=== PATIENT | female | born 1995 | race Caucasian/White ===

== ENCOUNTER 2021-10-14 09:58 | Outpatient (CLI) | payer OTHER, SELFPAY ==
--- NOTE | 2021-10-14 10:15 | MR_ITS ---
[address] [address] Phone:?[phone] Fax:?[phone] Referring Physician Information: Robert Umana [address] [facility] [address] Phone:?[phone] Fax:?[phone] Patient:?Marisela Gracia D.O.B:?1995 Sex:?Female Phone:?[phone] [facility] MRN:?[id number] Exam Date:?10/14/2021 ? EXAM: MRI of the RIGHT WRIST, without contrast CLINICAL: Female, 25 years old, with work-related ulnar-sided right wrist pain. INDICATION: Evaluate for wrist derangement etiology. PRIOR SURGERY: None reported. PLAIN FILMS: None available. COMPARISONS: No prior MRIs available. TECHNICAL: Using a 1.5T MR scanner and a localizing surface coil: 3.0 mm?coronals: T1, T2,STIR 3.0 mm?sagittals: PDFS 3.0 mm?axials: PD, PDFS SEDATION: None. CONTRAST: None. IMPRESSION: 1. Full-thickness TFCC articular disc tear. 2. 2 mm ulna plus variance, morphology with potential to predispose to ulnar impaction syndrome and TFCC injury. 3. Borderline abnormal flexor tenosynovitis of the carpal tunnel. 4. No fractures or marrow edema. Were 5 mm proximal carpal row ligament tears. FINDINGS: Joints: Radiocarpal: No pathologic effusion or convincing arthrosis. Distal radioulnar: No pathologic effusion or convincing arthrosis. Midcarpal: No pathologic effusion or convincing arthrosis. Carpometacarpal: No pathologic effusion or convincing arthrosis. Ganglion cyst: No dorsal or other soft tissue ganglion cyst. Osseous structures: Carpal bones: No stress/occult fracture, marrow edema or osteonecrosis. Distal radius: No fracture or marrow edema. Distal ulna: No fracture or marrow edema. 2 mm ulna plus variance (coronal T1 series 6, image 9) Proximal metacarpals: No fracture or marrow edema. Alignment: Lunate type: Type I Scapholunate and capitolunate angles: Normal. Ulna variance: 2 mm ulna plus variance. TFCC: Signal alteration and deformity consistent with degeneration and full-thickness tear of TFCC articular disc (coronal T1 & PDFS series 6 & 5, images 11-9). Ligaments: Scapholunate: No sprain/tear or disassociation. Lunotriquetral: No sprain/tear. Tendons: Flexors: Perhaps mild edema within the carpal tunnel, borderline for mild flexor tenosynovitis, with flexor tendons otherwise appearing intact without riley tendinopathy or tear (axial PDFS series 4, images 4-11). Extensors: ECU & 6th extensor compartment: Intact without riley tendinopathy tear or longitudinal splitting. Extensor retinaculum and fibrous subsheath appear intact without demonstrable subsheath injury or nonphysiologic ECU displacement. 1st - 5th extensor compartments: Intact and unremarkable. Neurovascular: Median: Above questioned borderline abnormal flexor tenosynovitis of the carpal tunnel, but otherwise unremarkable carpal tunnel without convincing neuritis or intrinsic/extrinsic masses. Ulnar: Unremarkable Guyon's canal without intrinsic/extrinsic masses. [facility] Electronically signed on 10/15/2021 11:48:00 AM by Juan M Thomas M.D.
== END 2021-10-14 09:59 | disposition home or self-care (01) ==
LOC: MRI 09:59
PROVIDERS: PCP Family Medicine; Visit Provider Physician Assistant Surgical
DX: M25.531 Pain in right wrist (principal); G56.01 Carpal tunnel syndrome, right upper limb
CPT/HCPCS: 73221

== ENCOUNTER 2021-11-22 09:24 | Day surgery (SDC) | payer OTHER, SELFPAY ==
[2021-11-22] VITALS (11 sets, daily range): BP systolic 122–147; BP diastolic 66–100; PULSE 67–86; RESP 12–18; TEMP 36.2–36.6; O2SAT 97–100; BMI 30.3
[2021-11-22 09:39] LABS: Ur HCG Qualitative* Negative (Negative)
[2021-11-22] MEDS: LACTATED RINGERS 1000 ML 1,000 ML 100 ML IV (09:55)
[2021-11-22] MEDS: ONDANSETRON 2 MG/ML inj 4 MG IVP (12:00)
[2021-11-22] MEDS: BUPIVACAINE 0.25% 30 ML INJECTION (13:02)
--- NOTE | 2021-11-22 13:09 | P.GYNPRC_ITS ---
Procedure Note Date Seen: 11/22/21 Procedure Details: PREOPERATIVE DIAGNOSES: 1. Undesired fertility. 2. Endometriosis. POSTOPERATIVE DIAGNOSES: 1. Undesired fertility. 2. Endometriosis. PROCEDURE: 1. Laparoscopic bilateral salpingectomies. 2. Fulguration of endometriosis. 3. IUD removal. SURGEON: [employer] VICE PRESIDENT: Yosvany Reynolds. ANESTHESIA: General endotracheal. COMPLICATIONS: None. ESTIMATED BLOOD LOSS: 10 mL. FINDINGS: Normal-appearing uterus, ovaries bilaterally, and bilateral fallopian tubes. Endometriosis in the posterior cul-de-sac, 1 implant in the midline, 1 implant near the right uterosacral ligament, and a grouping of deeper implants overlying the left ureter. DESCRIPTION OF PROCEDURE: After obtaining informed consent, the patient was taken to the operating room where general anesthesia was obtained without difficulty. She was prepared and draped in the normal sterile fashion in the low dorsal lithotomy position. A Jaquez catheter was inserted into the bladder and left to gravity drainage. A medium Graves open-sided speculum was introduced into the vagina. The cervix was visualized and grasped along its anterior lip with a single-tooth tenaculum. The IUD strings were visualized at the external cervical os, they were grasped with a Carmalt clamp, and the IUD removed without difficulty. A [employer] uterine manipulator was placed without difficulty. The tenaculum and speculum were removed. I then changed gloves and my attention was turned to the abdomen. The inferior aspect of the umbilical fold was injected with 0.25% Marcaine plain. A 5 mm vertical incision was then made within the umbilical fold using a scalpel. The subcutaneous tissues were bluntly dissected with a Kaylie clamp to the fascia. A direct entry technique was used to place a 5 mm laparoscopic port with CO2 gas set to a 5 mmHg. The trocar was removed leaving the sleeve in place. The CO2 gas flow was turned to high flow to achieve pneumoperitoneum. The 5 mm laparoscope was used then to carefully inspect the abdomen and pelvis with findings noted above. Pictures were taken for documentation purposes. The patient was placed in Trendelenburg positioning. Two additional 5 mm port were placed in the right and left lower quadrant under direct visualization after first anesthetizing the skin and fascia with 0.25% Marcaine plain. The uterus was elevated using the uterine manipulator. The bowels were gently pushed from the pelvis cephalad. The left fallopian tube was elevated with the graspers. The left tube was excised from its ovarian, broad ligament, and cornual attachments using the LigaSure bipolar electrocautery device. The right fallopian tube was then also elevated and excised in a similar fashion. Hemostasis was obtained on both sides. The midline and right-sided posterior cul-de-sac endometriosis implants were fulgurated using the [employer] [facility] bipolar electrocautery spatula. I attempted to elevate the grouping of implants that were overlying the left ureter along its course, and determined that it would not be safe at this time to excise them for fear of injuring the ureter immediately beneath the implants. All instruments were then removed under direct visualization. Pneumoperitoneum was allowed to escape. The skin at all 3 port sites was closed in a subcuticular fashion with 4-0 Vicryl. Exofin glue was then placed over the incisions. The uterine manipulator and Jaquez catheter were removed. The patient tolerated the procedure well. Sponge, lap, and needle counts were correct x2. The patient was taken to the recovery room awake and in stable condition.
--- NOTE | 2021-11-22 13:17 | PM.PROC ---
Procedure Note Time Seen by Provider: 13:17 Date Seen: 11/22/21 Date of procedure: 11/22/21 Will [facility] bill your pro fee for this procedure?: Yes Procedure: assistant principal op note: Preoperative diagnosis: 25-year-old with undesired fertility, endometriosis, Mirena IUD Postoperative diagnosis: Same Procedure: Mirena IUD removal, laparoscopic bilateral salpingectomy, fulguration of endometriosis. Operative note: I was asked to assist Dr. Jessica with the patient's surgery. I aided in dissection, visualization, and obtaining hemostasis. Please see Dr. Jessica note for complete details. Surgeon: Crissy Bauer MD
--- NOTE | 2021-11-22 13:21 | W.ANESCHARGE ---
Anesthesia Charges Start Date/Time Anesthesia Start Date: 11/22/21 Anesthesia Start Time: 12:04 Stop Date/Time Anesthesia Stop Date: 11/22/21 Anesthesia Stop Time: 13:25 Summary Emergency: No
[2021-11-22] MEDS: MEPERIDINE 25 MG/ML INJ 12.5 MG IVP (13:29)
--- NOTE | 2021-11-22 13:44 | W.ANESCHARGE ---
Anesthesia Charges Start Date/Time Anesthesia Start Date: 11/22/21 Anesthesia Start Time: 12:04 Stop Date/Time Anesthesia Stop Date: 11/22/21 Anesthesia Stop Time: 13:25 Summary Emergency: No
[2021-11-22] MEDS: HYDROCODONE/ACETAMIN 7.5-325 TABLET 1 TAB PO (14:22)
[2021-11-22] MEDS: METOCLOPRAMIDE HCL 5 MG/ML INJ 10 MG IVP (14:41)
== END 2021-11-22 14:45 | disposition home or self-care (01) ==
PROVIDERS: PCP Family Medicine; Visit Provider Obstetrics & Gynecology
PROC: (CPT 58661; principal; 2021-11-22 10:30)
DX: N80.3 Endometriosis of pelvic peritoneum (principal); Z30.2 Encounter for sterilization; Z30.432 Encounter for removal of intrauterine contraceptive device
CPT/HCPCS: 58661; 58662; 58301; 00851; 81025; A9270; J0330; J1100; J1170; J2175; J2250; J2405; J2704; J2765; J3010; J3490; J7120

== ENCOUNTER 2022-10-20 09:18 | Outpatient (CLI) | payer OTHER, SELFPAY | END 2022-10-20 09:19 | disposition home or self-care (01) | PROVIDERS: PCP Family Medicine; Visit Provider Registered Nurse | DX: Z01.419 Encounter for gynecological examination (general) (routine) without abnormal findings (principal); Z13.6 Encounter for screening for cardiovascular disorders; Z13.1 Encounter for screening for diabetes mellitus | CPT/HCPCS: 80061; 82947 ==

== ENCOUNTER 2022-10-22 20:48 | Emergency (ER) | payer OTHER, SELFPAY ==
[2022-10-22 20:54] VITALS: BP 123/84; PULSE 98; RESP 18; TEMP 36.2; O2SAT 99; BMI 30.4
--- NOTE | 2022-10-22 21:05 | ED_ITS ---
HPI - General Adult General Time Seen by Provider: 21:05 Date Seen: 10/22/22 Chief complaint: Bug Bite Stated complaint: Got stung by a bee -L leg,rash is spreading Time Seen by Provider: 10/22/22 21:02 Source: patient and RN notes reviewed Mode of arrival: ambulatory Limitations: no limitations History of Present Illness HPI narrative: Gerardo is a 26-year-old female coming in with concern of possible reaction to or infection from a bug bite. She was stung on her left upper thigh yesterday, use Benadryl most the day yesterday and 1 dose today. The area has continued to expanding redness, more so later today. It has become warm. She did use ice yesterday. It has been increasing in size, getting warmer and more itchy. No history reaction prior. No difficulty breathing, no rash elsewhere. Related Data Previous Rx's Medication Instructions Recorded ibuprofen 600 mg tablet 600 mg PO Q6H PRN pain #90 tabs 10/07/21 sumatriptan succinate 50 mg tablet 50 mg PO ONCE PRN migraine 10/20/22 headache #9 tabs cephalexin 500 mg tablet 500 mg PO TID #20 tabs 10/22/22 Allergies Allergy/AdvReac Type Severity Reaction Status Date / Time No Known Allergies Allergy Verified 10/20/22 08:18 Review of Systems Narrative: As per HPI. [facility] Medical History Wrist fracture (10/12/09) ?S62.109A - Fracture of unspecified carpal bone, unspecified wrist, initial encounter for closed fracture (ICD-10) Vomiting ?R11.10 - Vomiting, unspecified (ICD-10) Seasonal allergies (10/12/09) ?J30.2 - Other seasonal allergic rhinitis (ICD-10) Postconcussion syndrome ?F07.81 - Postconcussional syndrome (ICD-10) Muscle pain ?M79.10 - Myalgia, unspecified site (ICD-10) Laceration of finger ?S61.219A - Laceration without foreign body of unspecified finger without damage to nail, initial encounter (ICD-10) Ketonuria ?R82.4 - Acetonuria (ICD-10) Hyperemesis gravidarum ?O21.0 - Mild hyperemesis gravidarum (ICD-10) Surgical History H/O wrist surgery ?Z98.890 - Other specified postprocedural states (ICD-10) S/P laparoscopy (11/22/21) ?Z98.890 - Other specified postprocedural states (ICD-10) History of tonsillectomy (2009) ?Z90.89 - Acquired absence of other organs (ICD-10) History of breast augmentation (2020) ?Z98.82 - Breast implant status (ICD-10) Family History Mother Bleeding disorder Father High blood pressure Liver disease Other Anxiety Depression Social History Narrative: 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 , 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, 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 non-smoker rarely consumes alcohol no rec drugs What is your current living situation?: I presently have a place to live Problems where you live: no known problems In the past 12 months, utilities in danger of being shut off: no How hard is it for you to pay for the very basics like food, housing, medical care, and heating: not very hard In the past 12 mos, have been you worried that your food would run out before you had money to buy more?: never true In the past 12 mos, the food you bought just didn't last and you didn't have money to buy more?: never true Smoking Status: Former smoker How often do you have a drink containing alcohol: monthly or less AUDIT-C Alcohol total score: 1 Non-prescribed substance use: denies use Caffeine: No How often does anyone, including family, friends and others, physically hurt you : never How often does anyone, including family, friends and others, insult or talk down to you: never How often does anyone, including family, friends and others, threaten you with harm: never How often does anyone, including family, friends and others, scream or curse at you: never Little interest or pleasure in doing things: not at all Feeling down, depressed, or hopeless: not at all Exam Narrative: Exam Narrative: This 26-year-old female is alert interactive no apparent distress. On her left upper anterior thigh, has a circular area of erythema. She has 2 in her demarcated areas where the initial bug bite started, where was upon awakening today and then the subsequent erythema that has progressed. Areas warm, no vesicles. No retained foreign body noted. It is not significantly raise. Lungs are clear, good air entry, able speak in complete sentences. CV regular rate and rhythm no murmur. Const: Vital Signs, click to edit/add: Vital Signs - 24 hr 10/22/22 20:54 Temperature 97.2 F L Pulse Rate [Pulse Oximeter] 98 Respiratory Rate 18 Blood Pressure [Ri ght Upper Arm] 123/84 Pulse Oximetry 99 Oxygen Delivery Me thod Room Air Documenting provider has reviewed patient's vital signs: yes Course Course Hospital Course: Patient feels symptoms are rapidly expanding with the redness and the warmth that just started tonight. She has not had a fever to date. Discussed that this is not an allergic reaction but certainly could be a reaction to the envenomation, there is a possibility that she could be developing a secondary cellulitis. We discussed options, there is no Keflex in [facility]. She would prefer to treat for cellulitis which I think is reasonable given her rapid progression of symptoms tonight. Will give a dose of 500 mg oral Keflex tonight, 10 mg oral Zyrtec. Vital Signs Vital signs: Initial Vital Signs Temperature 97.2 F L 10/22/22 20:54 Temperature Source Temporal Artery Scan 10/22/22 20:54 Pulse Rate 98 10/22/22 20:54 Respiratory Rate 18 10/22/22 20:54 Blood Pressure 123/84 10/22/22 20:54 Blood Pressure Mean 97 10/22/22 20:54 Blood Pressure Position Sitting 10/22/22 20:54 Pulse Oximetry 99 10/22/22 20:54 Oxygen Delivery Method Room Air 10/22/22 20:54 Vital Signs Temperature 97.2 F L 10/22/22 20:54 Pulse Rate 98 10/22/22 20:54 Respiratory Rate 18 10/22/22 20:54 Blood Pressure 123/84 10/22/22 20:54 Pulse Oximetry 99 10/22/22 20:54 Oxygen Delivery Method Room Air 10/22/22 20:54 Temperature 97.2 F L 10/22/22 20:54 Pulse Rate 98 10/22/22 20:54 Respiratory Rate 18 10/22/22 20:54 Blood Pressure 123/84 10/22/22 20:54 Pulse Oximetry 99 10/22/22 20:54 Oxygen Delivery Method Room Air 10/22/22 20:54 Discharge Plan Discharge Clinical Impression: Cellulitis, Insect bite Patient Disposition: Home, Self-Care Condition: Stable Instructions: Insect Bite or Sting (ED) Additional Instructions: Next dose of Keflex due tomorrow, take as prescribed. Continue to watch the area for increasing redness, swelling, pain or development of fever; seek re- evaluation should you feel that this is worsening. Do recommend taking daily Claritin or Zyrtec for the next 3-5 days, this will help block any reaction. Can still use Benadryl per package instructions if itching beyond Claritin or Z yrtec use. Do recommend ice to this area is much as you are able to for the next 24-48 hours. Activity Level: Activity as Tolerated Prescriptions: New cephalexin 500 mg tablet 500 mg PO TID Qty: 20 0RF No Action sumatriptan succinate 50 mg tablet 50 mg PO ONCE PRN (Reason: migraine headache) Qty: 9 2RF Rx Instructions: 50mg po x1; max 200mg/24hr. May repeat dose x1 after 2hours. ibuprofen 600 mg tablet 600 mg PO Q6H PRN (Reason: pain) Qty: 90 0RF Follow Up/Referrals: Herbert Velez MD [Primary Care Provider] - Stand Alone Forms: [employer] Info Instructions
[2022-10-22] MEDS: cephALEXin 500 MG CAPSULE PO (21:55)
[2022-10-22] MEDS: CETIRIZINE HCL 10 MG TABLET PO (21:56)
[2022-10-22 22:00] VITALS: BP 118/74; PULSE 98; RESP 18; TEMP 36.7; O2SAT 99
[2022-10-22 22:02] VITALS: BP 123/84; PULSE 98; RESP 18; TEMP 36.2
== END 2022-10-22 22:04 | disposition home or self-care (01) ==
LOC: ED 21:42
PROVIDERS: Emergency Provider Family Medicine; PCP Family Medicine
DX: S70.362A Insect bite (nonvenomous), left thigh, initial encounter (principal); L03.116 Cellulitis of left lower limb
CPT/HCPCS: 99283; 99284; A9270

== ENCOUNTER 2022-11-07 10:08 | Outpatient (CLI) | payer OTHER, SELFPAY | END 2022-11-07 10:09 | disposition home or self-care (01) | LOC: NFLDREF 12:52 | PROVIDERS: PCP Family Medicine; Referring Provider Registered Nurse; Visit Provider Nurse Practitioner Family | DX: Z79.899 Other long term (current) drug therapy (principal); F41.9 Anxiety disorder, unspecified; F31.9 Bipolar disorder, unspecified; F43.10 Post-traumatic stress disorder, unspecified | CPT/HCPCS: 80053; 82306; 84443 ==

== ENCOUNTER 2022-12-07 16:10 | Emergency (ER) | payer OTHER, SELFPAY ==
[2022-12-07 16:21] VITALS: BP 126/83; PULSE 67; RESP 18; TEMP 36.7; O2SAT 100; BMI 30.4
--- NOTE | 2022-12-07 16:31 | ED.GENADULT ---
HPI - General Adult General Time Seen by Provider: 16:31 Date Seen: 12/07/22 Chief complaint: Unspecified Complaint, Adult Stated complaint: Chest pain following med change Time Seen by Provider: 12/07/22 16:22 History of Present Illness HPI narrative: This is a pleasant 26-year-old female with a history of endometriosis, also a history of mental health disorders including PTSD, recent diagnosis of bipolar, anxiety and depression, nightmares, and a distant history of alcohol abuse. She is a nonsmoker. She has no history of any heart or lung disease and no family history of any premature heart disease or sudden . She was started on Lamictal for mood stabilizer about a month ago and increased her dose from 50-100 mg yesterday. She has been feeling fairly well lately and went camping over the weekend with no symptoms. She has not had any recent cough or fever. No recent travel or long car rides. No swelling in her legs. She woke from sleep this morning about 6:00 a.m. when her alarm went off and noticed that she had some mild discomfort in her left upper chest. She initially thought maybe she had just ?slept funny?. The pain was present intermittently throughout the morning, present most of the time. No clear pattern of exacerbating or alleviating factors. It was still present at noon so she called her clinic. They told her to come to the ER to be checked out just to be sure it was nothing serious. This afternoon her pain became more intense. It comes in waves. It is burning when it is intense. It has never completely gone but does get milder. It does not radiate to her jaw, down her arm, or to her back. No other associated symptoms. No shortness of breath. No palpitations. No cough. No hemoptysis. She is somewhat dizzy. She is worried about the pain. She also has a longstanding history of reflux ever since she had children. She had breast implant surgery a couple of years ago. No other recent operations. From psychiatry clinic note on 12/01, saw provider Scott Assessment and plan: Anxiety severe; advised medications specifically for anxiety, and also improving sx of mood disorder anticipate improved anxiety; could consider beta-blaocker given pt also has migraine hx Bipolar disorder II; reviewed condition, management including indication for mood stabilizer and avoidance of antidepressant; discussed med options including mood stabilizers, SGAs; joint decision made for trial of Lamictal; reviewed monitoring including if blistering rash dc med and contact provider, f/u within month, sooner prn PTS; advised therapy Nightmares; advised medication available that can prevent Hx of binge drinking; praised for self awareness, encouraged abstinence or moderation Related Data Previous Rx's Medication Instructions Recorded ibuprofen 600 mg tablet 600 mg PO Q6H PRN pain #90 tabs 10/07/21 sumatriptan succinate 50 mg tablet 50 mg PO ONCE PRN migraine 10/20/22 headache #9 tabs lamotrigine 100 mg tablet 100 mg PO QDAY #90 tabs 12/04/22 tranexamic acid 650 mg tablet 1,300 mg (2 x 650 mg) PO Q8H #20 12/05/22 tabs Allergies Allergy/AdvReac Type Severity Reaction Status Date / Time No Known Allergies Allergy Verified 11/15/22 09:37 [facility] Medical History (Updated 12/07/22 @ 18:26 by Farhad Arechiga MD) Nightmares ?F51.5 - Nightmare disorder (ICD-10) History of alcohol abuse ?F10.11 - Alcohol abuse, in remission (ICD-10) Post-traumatic stress ?F43.10 - Post-traumatic stress disorder, unspecified (ICD-10) BiPAP (biphasic positive airway pressure) dependence ?Z99.89 - Dependence on other enabling machines and devices (ICD-10) Bipolar disorder ?F31.9 - Bipolar disorder, unspecified (ICD-10) Anxiety and depression ?F41.9 - Anxiety disorder, unspecified (ICD-10) ?F32.A - Depression, unspecified (ICD-10) Medication management ?Z79.899 - Other longterm (current) drug therapy (ICD-10) Wrist fracture (10/12/09) ?S62.109A - Fracture of unspecified carpal bone, unspecified wrist, initial encounter for closed fracture (ICD-10) Vomiting ?R11.10 - Vomiting, unspecified (ICD-10) Seasonal allergies (10/12/09) ?J30.2 - Other seasonal allergic rhinitis (ICD-10) Postconcussion syndrome ?F07.81 - Postconcussional syndrome (ICD-10) Muscle pain ?M79.10 - Myalgia, unspecified site (ICD-10) Laceration of finger ?S61.219A - Laceration without foreign body of unspecified finger without damage to nail, initial encounter (ICD-10) Ketonuria ?R82.4 - Acetonuria (ICD-10) Hyperemesis gravidarum ?O21.0 - Mild hyperemesis gravidarum (ICD-10) Surgical History H/O wrist surgery ?Z98.890 - Other specified postprocedural states (ICD-10) S/P laparoscopy (11/22/21) ?Z98.890 - Other specified postprocedural states (ICD-10) History of tonsillectomy (2009) ?Z90.89 - Acquired absence of other organs (ICD-10) History of breast augmentation (2020) ?Z98.82 - Breast implant status (ICD-10) Family History Mother Bleeding disorder Father High blood pressure Liver disease Other Anxiety Depression Social History Narrative: 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 , [employer]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[employer], 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 non-smoker rarely consumes alcohol no rec drugs What is your current living situation?: I presently have a place to live Problems where you live: no known problems In the past 12 months, utilities in danger of being shut off: no In past 12 months, lack of transportation kept you from medical appts, meetings, work, or getting things needed for daily living: no How hard is it for you to pay for the very basics like food, housing, medical care, and heating: not very hard In the past 12 mos, have been you worried that your food would run out before you had money to buy more?: never true In the past 12 mos, the food you bought just didn't last and you didn't have money to buy more?: never true Smoking Status: Former smoker How often do you have a drink containing alcohol: monthly or less AUDIT-C Alcohol total score: 1 Non-prescribed substance use: denies use Caffeine: No How often does anyone, including family, friends and others, physically hurt you: never How often does anyone, including family, friends and others, insult or talk down to you: never How often does anyone, including family, friends and others, threaten you with harm: never How often does anyone, including family, friends and others, scream or curse at you: never Little interest or pleasure in doing things: not at all Feeling down, depressed, or hopeless: several days Exam Narrative: Exam Narrative: Constitutional: Appears well-developed and well-nourished. Alert. Conversant. Pleasant but mildly tearful and worried. Non toxic. HENT: Head: Atraumatic. Nose: Nose normal. Mouth/Throat: Oral mucosa is clear and moist. no trismus. Pharynx normal. Tonsils symmetric. No tonsillar enlargement, erythema, or exudate. Eyes: Conjunctivae normal. EOM normal. Pupils equal, round, and reactive to light. No scleral icterus. Neck: Normal range of motion. Neck supple. No tracheal deviation present. Cardiovascular: Normal rate, regular rhythm. No gallop. No friction rub. No murmur heard. Symmetric radial and PT/DP artery pulses . No JVD Pulmonary/Chest: Effort normal. No stridor. No respiratory distress. No wheezes. No rales. No rhonchi . No tenderness. No rash. No shingles. Abdominal: Soft. Bowel sounds normal. No distension. No mass. No tenderness. No rebound. No guarding. Musculoskeletal: RUE: Normal range of motion. No tenderness. No deformity LUE: Normal range of motion. No tenderness. No deformity RLE: Normal range of motion. No edema. No tenderness. No deformity LLE: Normal range of motion. No edema. No tenderness. No deformity Lymph: No cervical adenopathy. Neurological: Alert and oriented to person, place, and time. Normal strength. CN II-VII intact. No sensory deficit. GCS eye subscore is 4. GCS verbal subscore is 5. GCS motor subscore is 6. Normal coordination Skin: Skin is warm and dry. No rash noted. No pallor. Normal capillary refill. Psychiatric: Normal mood. Mildly tearful but pleasant. She recognizes that she does have underlying anxiety but does not feel like she is having a panic attack. She seems to have pretty good insight. Const: Vital Signs, click to edit/add: Vital Signs - 24 hr 12/07/22 16:21 Temperature 98.1 F Pulse Rate [Right Pulse Oximeter] 67 Respiratory Rate 18 Blood Pressure [Ri ght Upper Arm] 126/83 Pulse Oximetry 100 Oxygen Delivery Me thod Room Air Course Vital Signs Vital signs: Initial Vital Signs Temperature 98.1 F 12/07/22 16:21 Temperature Source Temporal Artery Scan 12/07/22 16:21 Pulse Rate 67 12/07/22 16:21 Respiratory Rate 18 12/07/22 16:21 Blood Pressure 126/83 12/07/22 16:21 Blood Pressure Mean 97 12/07/22 16:21 Blood Pressure Position Sitting 12/07/22 16:21 Pulse Oximetry 100 12/07/22 16:21 Oxygen Delivery Method Room Air 12/07/22 16:21 Vital Signs Temperature 98.1 F 12/07/22 16:21 Pulse Rate 67 12/07/22 16:21 Respiratory Rate 18 12/07/22 16:21 Blood Pressure 126/83 12/07/22 16:21 Pulse Oximetry 100 12/07/22 16:21 Oxygen Delivery Method Room Air 12/07/22 16:21 Temperature 98.1 F 12/07/22 16:21 Pulse Rate 67 12/07/22 16:21 Respiratory Rate 18 12/07/22 16:21 Blood Pressure 126/83 12/07/22 16:21 Pulse Oximetry 100 12/07/22 16:21 Oxygen Delivery Method Room Air 12/07/22 16:21 Medical Decision Making MDM Narrative Medical decision making narrative: This patient presents to the ER today for evaluation of chest pain ongoing since she woke up this morning. Differential was broad. No evidence of palpitations, syncope or other cardiac dysrhythmia. We considered possible ACS, however workup with EKG and troponin is negative. HEART score is 1. Given time since onset of symptoms, I do not think the patient needs to be admitted for further sets of enzymes. EKG shows no evidence for pericarditis. Clinical presentation not suggestive of myocarditis. Chest x-ray shows no evidence for pneumonia, pneumothorax, pulmonary edema, pleural effusion, rib fracture, cardiomegaly. Mediastinum is normal on the x-ray. The patient has no ripping or tearing pain through to the back and has symmetric pulses on exam, no other acute neuro findings so I doubt aortic dissection. Risk of radiation and contrast exposure would outweigh the benefit of CT angiogram. We considered PE for this patient. She has no specific risk factor for DVT/PE. She is on control. No recent travel. No signs of DVT. Overall very low risk by my clinical assessment. She is low risk by PERC so will hold off on D-dimer testing or CT PA No wheezing or bronchospasm to suggest COPD/asthma. No signs of chest wall cellulitis, shingles, injury. pain is somewhat worse with movement of her torso, which could suggest musculoskeletal cause. She does have a history of reflux. However she has never had pain similar today with other episodes of reflux. No change with maalox. She recently increased her dose of Lamictal. No side of any allergic reaction or Lyn Matt's. According to UpToDate, there is a 2-5% occurrence of chest pain as a side effect of this medication. With reasonable clinical confidence, I think the patient is safe for outpatient follow up. Discussed return precautions. Questions answered. Patient voices comfort with the plan. Lab Data Labs: Lab Results 12/07/22 Range/Units 17:04 WBC 13.72 H (4.50-11.00) K/uL RBC 4.78 (4.00-5.20) m/uL Hgb 13.8 (12.0-16.0) gm/dL Hct 40.9 (33.0-51.0) % MCV 86 (80-100) fL MCH 29 (26-34) pg MCHC 34 (32-36) gm/dL RDW Coeff of Riaz 12.2 (11.5-15.5) % Plt Count 268 (140-440) K/uL Neut % (Auto) 69.4 (42.0-72.0) % Lymph % (Auto) 21.6 (20-44) % [place] % (Auto) 5.5 (0.0-11.0) % Eos % (Auto) 3.1 (0.0-7.0) % Baso % (Auto) 0.3 (0.0-3.0) % Neut # (Auto) 9.50 H (1.7-7.0) K/uL Lymph # (Auto) 3.00 H (0.90-2.90) K/uL [place] # (Auto) 0.80 (0.00-0.90) K/UL Eos # (Auto) 0.40 (0.00-0.50) K/uL Baso # (Auto) 0.00 (0.00-0.30) K/uL Abs Immat Gran (auto) 0.00 (0.00-0.30) K/uL Imm/Tot Granulo (auto) 0.1 % Sodium 138 (135-149) mmol/L Potassium 3.7 (3.6-5.1) mmol/L Chloride 105 (96-114) mmol/L Carbon Dioxide 23 (20-32) mmol/L Anion Gap 10 (7-15) mEq/L BUN 10 (5-24) mg/dL Creatinine 0.8 (0.5-1.5) mg/dL Estimated Creat Clear 106.56 Estimated GFR 104 ml/min Glucose 83 (60-115) mg/dL Calcium 9.1 (8.4-10.6) mg/dL Troponin I < 0.01 L (0.01-0.04) ng/mL HCG, Qual Negative (Negative) Imaging Data Chest x-ray: Attestation: I have reviewed the pertinent imaging results. Radiologist's impression: Findings/Impression: Cardiovascular and mediastinum: Heart size and vasculature are normal in caliber and appearance. Mediastinum is within normal limits. Lungs and pleural spaces: Lungs are clear. No sign of infiltrate or mass. No sign of pleural effusion. No pneumothorax. Bones and soft tissues: No significant findings. ECG Data Attestation: I personally reviewed and interpreted this ECG as follows: Interpretation: Normal sinus rhythm . Rate 65 AK 130 QRS axis normal axis ST segment/T wave: No ST segment elevation or depression. Nonspecific T-wave flattening in V4-V6. QTc: 472 Discharge Plan Discharge Clinical Impression: Chest pain Patient Disposition: Home, Self-Care Condition: Stable Instructions: Chest Pain (DC) Additional Instructions: As we discussed, so far your workup looks reassuring. No signs of a serious heart or lung problem causing her chest pain. Monitor your symptoms carefully and come back to the ER right away if you have worsening pain, trouble breathing, high fever, cough, changing or new concerning symptoms, or if you have any problems. Please follow-up with your doctor to discuss your Lamictal. My reference indicates that between 2-5% of people on this medication can have chest pain is a side effect. However, at this time it is not definitively certain that the Lamictal is causing your chest pain. Prescriptions: No Action sumatriptan succinate 50 mg tablet 50 mg PO ONCE PRN (Reason: migraine headache) Qty: 9 2RF Rx Instructions: 50mg po x1; max 200mg/24hr. May repeat dose x1 after 2hours. ibuprofen 600 mg tablet 600 mg PO Q6H PRN (Reason: pain) Qty: 90 0RF lamotrigine 100 mg tablet 100 mg PO QDAY Qty: 90 0RF tranexamic acid 650 mg tablet 1,300 mg PO Q8H Qty: 20 2RF Rx Instructions: Use three times daily as needed for severe menstrual pain and bleeding for 3 days each month Follow Up/Referrals: Herbert Velez MD [Primary Care Provider] - Stand Alone Forms: MyHealth Info Instructions
--- NOTE | 2022-12-07 16:48 | CRLHL7_ITS ---
For Patients: As a result of the Century Cures Act, medical imaging exams and procedure reports are released immediately into your electronic medical record. You may view this report before your referring provider. If you have questions, please contact your health care provider. Indication: Cough, chest pain Technique: Chest 2 views Comparison: None Findings/Impression: Cardiovascular and mediastinum: Heart size and vasculature are normal in caliber and appearance. Mediastinum is within normal limits. Lungs and pleural spaces: Lungs are clear. No sign of infiltrate or mass. No sign of pleural effusion. No pneumothorax. Bones and soft tissues: No significant findings. Dictated by Jared Mcdaniels MD @ 12/07/2022 6:01:07 PM (Electronically Signed)
[2022-12-07] MEDS: MAG HYDROX/ALUMINUM HYD/SIMETH 30 ML ORAL.SUSP 15 ML PO (16:54)
[2022-12-07 17:13] LABS: Hematocrit 40.9 % (33.0-51.0); Hemoglobin* 13.8 gm/dL (12.0-16.0); Lymphocytes Percent Auto 21.6 % (20-44); Mean Corpuscular HGB Conc 34 gm/dL (32-36); Mean Corpuscular Hemoglobin 29 pg (26-34); Mean Corpuscular Volume 86 fL (80-100); Neutrophils Percent Auto 69.4 % (42.0-72.0); Platelet Count* 268 K/uL (140-440); RDW Coefficient of Variation % 12.2 % (11.5-15.5); Red Blood Count 4.78 m/uL (4.00-5.20); White Blood Count* 13.72 K/uL (4.50-11.00)
[2022-12-07 17:14] LABS: Basophils Percent Auto 0.3 % (0.0-3.0); Eosinophils Percent Auto 3.1 % (0.0-7.0); Immature Granulocytes Pct Auto 0.1 %; Monocytes Percent Auto 5.5 % (0.0-11.0); Slide Review Reflex No
[2022-12-07 17:26] LABS: Chloride* 105 mmol/L (96-114); Potassium* 3.7 mmol/L (3.6-5.1); Sodium* 138 mmol/L (135-149)
[2022-12-07 17:29] LABS: Anion Gap 10 mEq/L (7-15); Blood Urea Nitrogen* 10 mg/dL (5-24); Carbon Dioxide* 23 mmol/L (20-32); Creatinine* 0.8 mg/dL (0.5-1.5); Est. Creatinine Clearance* 106.56; Estimated Glomerular Filt Rate 104 ml/min; Glucose* 83 mg/dL (60-115)
[2022-12-07 17:30] LABS: Calcium* 9.1 mg/dL (8.4-10.6)
[2022-12-07 17:43] LABS: Troponin I* < 0.01 ng/mL (0.01-0.04)
[2022-12-07 17:48] LABS: HCG Qualitative Serum* Negative (Negative)
== END 2022-12-07 18:40 | disposition home or self-care (01) ==
PROVIDERS: Emergency Provider Emergency Medicine; PCP Family Medicine
DX: R07.9 Chest pain, unspecified (principal)
CPT/HCPCS: 36415; 71046; 80048; 84484; 84703; 85025; 93005; 99284; 99285; A9270

== ENCOUNTER 2024-09-02 16:24 | Outpatient (CLI) | payer OTHER, SELFPAY | END 2024-09-02 16:25 | disposition home or self-care (01) | LOC: NFLDREF 09-06 00:41 | PROVIDERS: PCP Family Medicine; Referring Provider Family Medicine | DX: N39.0 Urinary tract infection, site not specified (principal); B95.7 Other staphylococcus as the cause of diseases classified elsewhere | CPT/HCPCS: 87086; 87186 ==

== ENCOUNTER 2024-11-11 07:35 | Outpatient (CLI) | payer OTHER, SELFPAY | END 2024-11-11 07:36 | disposition home or self-care (01) | LOC: NFLDREF 11-14 17:28 | PROVIDERS: PCP Family Medicine; Referring Provider Family Medicine; Visit Provider Family Medicine | DX: R19.7 Diarrhea, unspecified (principal); E78.5 Hyperlipidemia, unspecified | CPT/HCPCS: 80053; 80061; 84443 ==